=== PATIENT | male | born 1955 | race Caucasian/White ===

== ENCOUNTER 2020-02-04 18:45 | Emergency (ER) | payer MEDICARE, MEDICAID ==
[~2020-02-04] VITALS: Ht 190.5 cm; Wt 88.5 kg
[2020-02-04 18:45] VITALS: BP_SYST 118
--- NOTE | 2020-02-04 18:49 | NUR ---
Patient triaged and placed on wall. VSS and patient appears in no acute distress at this time. Accompanied by check totaler, awaiting available bed, and MD notified of need for MSE.
--- NOTE | 2020-02-04 20:07 | NUR ---
ARMIN Varghese examining patient.
--- NOTE | 2020-02-04 20:20 | NUR ---
PHLEB AT BEDSIDE FOR BLOOD DRAW
--- NOTE | 2020-02-04 20:32 | NUR ---
COVID JOSE GUADALUPE NEGATIVE
[2020-02-04 21:06] LABS: BASOPHILS # (AUTO) 0.1 K/uL (0.0-0.2); BASOPHILS % (AUTO) 0.5 % (0.0-2.0); EOSINOPHILS # (AUTO) 0.4 K/uL (0.0-0.4); EOSINOPHILS % (AUTO) 3.9 % (0.0-4.0); HEMATOCRIT 41.5 % (36-54); HEMOGLOBIN 14.5 g/dL (14.0-18.0); LYMPHOCYTES # (AUTO) 1.5 K/uL (1.0-5.5); LYMPHOCYTES % (AUTO) 16.7 % (20.5-51.5); MEAN CORPUSCULAR HEMOGLOBIN 32 pg (27-31); MEAN CORPUSCULAR HGB CONC 35 % (32-36); MEAN CORPUSCULAR VOLUME 91 fL (79.0-98.0); MONOCYTES # (AUTO) 0.6 K/uL (0.0-1.0); MONOCYTES % (AUTO) 6.3 % (1.7-9.3); NEUTROPHILS # (AUTO) 6.7 K/uL (1.8-7.7); NEUTROPHILS % (AUTO) 72.6 % (40.0-70.0); PLATELET COUNT (AUTO) 412 K/uL (130-430); RED BLOOD CELL COUNT(AUTO) 4.58 MIL/uL (4.2-6.2); RED CELL DISTRIBUTION WIDTH 14.1 % (9.0-15.0); WHITE BLOOD COUNT (AUTO) 9.3 K/uL (4.8-10.8)
[2020-02-04 21:07] LABS: CALCIUM 9.1 mg/dL (8.4-11.0); CREATININE 1.25 mg/dL (0.55-1.30); POTASSIUM 4.3 mmol/L (3.5-5.1)
[2020-02-04 21:14] LABS: ALBUMIN 3.7 g/dL (3.4-4.8); TOTAL BILIRUBIN 0.4 mg/dL (0.0-1.0)
[2020-02-04 21:20] LABS: PROTHROMBIN TIME 10.4 SECS (9.5-12.5)
[2020-02-04 21:27] LABS: C-REACTIVE PROTEIN QUANT 0.3 mg/dL (0-0.5)
--- NOTE | 2020-02-04 21:32 | NUR ---
Patient to PLACED IN ER HALLWAY BED.
--- NOTE | 2020-02-04 21:33 | NUR ---
PATIENT BROUGHT IN BLS FOR DRY NON PRODUCTIVE COUGH, CONGESTION, AND WHEEZING FROM HOME. PATIENT HAS A STOMA AND HISTORY OF THROAT CANCER AND TRACHEOTOMY. NO ACUTE DISTRESS. WILL CONTINUE TO MONITOR.
--- NOTE | 2020-02-04 21:52 | NUR ---
DR. MONTENEGRO AT BEDSIDE DISCUSSING RESULTS
[2020-02-04 21:55] VITALS: BP_SYST 122
--- NOTE | 2020-02-04 21:55 | NUR ---
Patient AND SON given written and verbal discharge instructions and verbalizes understanding. ER MD discussed with patient the results and treatment provided. Patient in stable condition. ID arm band removed. Rx of AZITHROMYCIN given. Patient educated on pain management and to follow up with PMD. Pain Scale 0/10 Opportunity for questions provided and answered. Medication side effect fact sheet provided.
== END 2020-02-04 21:55 | disposition home or self-care (01) ==
LOC: SED 18:45
DX: J40 Bronchitis, not specified as acute or chronic (principal); Z20.828 Contact with and (suspected) exposure to other viral communicable diseases
CPT/HCPCS: 36415; 36600; 71045; 80053; 82728; 82803-TC; 83605; 83615-TC; 83880; 84484; 85025; 85379; 85384-TC; 85610-TC; 85730-TC; 86140; 87040-TC; 93005; 99285